=== PATIENT | female | born 2000 | race Two or more races ===

== ENCOUNTER 2025-11-14 10:12 | Emergency (ER) | payer MEDICAID, OTHER ==
[~2025-11-14] VITALS: Ht 167.6 cm; Wt 118.4 kg
[2025-11-14] MEDS ORDERED: AUG875T PO (12:39)
--- NOTE | 2025-11-14 12:39 | ED.PDOC ---
Eye-HPI HPI Comments The patient presents with a history of recurrent sore throat, reporting this is the third episode since October. The current episode started approximately three weeks before this visit, improved, then recurred about one and a half weeks before this visit. The patient reports persistent sore throat, muffled hearing, and swelling sensation in the ear, without air pressure changes. The patient noted some blood in sputum on the Friday night two days before this visit, described as not a lot. The patient reports prior symptoms of congestion, muscle aches, vomiting, and fever, which have since subsided. There is ongoing congestion and muffled hearing, with stagnant improvement. The patient previously visited urgent care one week before this visit, where antibiotics and ibuprofen were prescribed; the antibiotic course was completed, but ibuprofen was not used. Zyrtec (cetirizine) was also prescribed for congestion but has not provided noticeable benefit. The current primary concern is muffled hearing and persistent sore throat. The patient has a history of recurrent sore throats, typically about once a year, with the last severe episode in the distant past. No allergies or relevant family history were discussed. The patient is not currently taking Tylenol or ibuprofen for pain. No details on social history were provided. Denies chest pain shortness of breath Denies inability to move neck, history of meningitis Denies difficulty swallowing nor persistent salivation Denies fevers chills night sweats Denies persistent cough, runny nose, congestion Denies loss of appetite, unintentional weight loss over the past 3 months Denies voice changes Denies history of asthma or seasonal allergies Chief Complaint: Sore Throat Time Seen by MD: 12:00 Reviewed Notes: Nurses Notes, Medications, Allergies Allergies: Coded Allergies: NO KNOWN ALLERGIES (Unverified , 11/14/25) Home Meds Active Scripts Amoxicillin & Pot Clavulanate (AUGMENTIN TABLET) 875 Mg Tb, 875 MG PO BID for 7 Days, #14 TAB 0 Refills Prov:LAURA SANDOVAL NP 11/14/25 Information Source: Patient Mode of Arrival: Ambulatory Timing: Days Duration: Since onset, Days Prehospital treatment: None Quality: Pain Lids: Normal Conjunctiva: Normal Cornea: Normal Pupils: Normal EOM: Normal Fundus: Normal Slit lamp exam: Normal Anterior chamber: Normal Mouth: Normal ENT Ear Exam: Normal Nose: Normal Sinuses: Normal Oropharynx: Normal Onset: Spontaneous Throat Exposed to: None History of: None Associated signs and symptoms: Sore Throat, Ear Pain Past Medical History PAST MEDICAL HISTORY: Denies Surgical History: Denies all surgeries PURSE MAKER History: No Pertinent PURSE MAKER History Family History Family History: Reviewed,noncontributory to illness, Unknown Social History Smoker: Non-Smoker Alcohol: Denies ETOH Use Drugs: Denies Drug Use Lives In: Home Constitutional: denies: chills, diaphoresis, fatigue, fever, malaise, sweats, weakness, others EENTM: reports: ear pain (Cover), throat pain, throat swelling; denies: blurred vision, double vision, ear bleeding, ear discharge, ear drainage, ear ringing, eye pain, eye redness, hearing loss, mouth pain, mouth swelling, nasal discharge, nose bleeding, nose congestion, nose pain, photophobia, tearing, voic e changes, others Respiratory: denies: cough, hemoptysis, orthopnea, SOB at rest, shortness of breath, SOB with excertion, stridor, wheezing, others Cardiovascular: denies: chest pain, dizzy spells, diaphoresis, Dyspnea on exertion, edema, irregular heart beat, left arm pain, lightheadedness, palpitations, PND, syncope, others Gastrointestinal: denies: abdomen distended, abdominal pain, blood streaked bowels, constipated, diarrhea, dysphagia, difficulty swallowing, hematemesis, melena, nausea, poor appetite, poor fluid intake, rectal bleeding, rectal pain, vomiting, others Genitourinary: denies: abnormal vagina bleeding, burning, dyspareunia, dysuria, flank pain, frequency, hematuria, incontinence, pain, , vagina discharge, urgency, others Neurological: denies: dizziness, fainting, headache, left sided numbness, left sided weakness, numbness, paresthesia, pre-existing deficit, right sided numb ness, right sided weakness, seizure, speech problems, tingling, tremors, weakness, others Musculoskeletal: denies: back pain, gout, joint pain, joint swelling, muscle pain, muscle stiffness, neck pain, others Integumetry: denies: bruises, change in color, change in hair/nails, dryness, laceration, lesions, lumps, rash, wounds, others Allergic/Immunocompromised: denies: Difficulty Healing, Frequent Infections, Hives, Itching, others Hematologic/Lymphatic: denies: anemia, blood clots, easy bleeding, easy bruising, swollen glands, others Endocrine: denies: excessive hunger, excessive sweating, excessive thirst, excessive urination, flushing, intolerance to cold, intolerance to heat, unexplained weight gain, unexplained weight loss, others Psychiatric: denies: anxiety, bipolar disorder, depression, hopeless, panic disorder, schizophrenia, sleepless, suicidal, others All Other Systems: Reviewed and Negative Physical Exam Exam Comments Oropharynx is red. No visible fluid found behind the ear. General Appearance: No Apparent Distress, Normal HEENT: Normal ENT Inspection, Pharynx Normal, TMs Normal Neck: Full Range of Motion, Non-Tender, Normal, Normal Inspection Respiratory: Chest Non-Tender, Lungs Clear, No Accessory Muscle Use, No Respiratory Distress, Normal Breath Sounds Cardiovascular: No Edema, No JVD, No Murmur, No Gallop, Normal Peripheral Pu lses, Regular Rate/Rhythm Breast Exam: Deferred Gastrointestinal: No Organomegaly, Non Tender, No Pulsatile Mass, Normal Bowel Sounds, Soft Genitalia: Deferred Pelvic: Deferred Rectal: Deferred Extremities: No calf tenderness, Normal capillary refill, Normal inspection, Normal range of motion, Non-tender, No pedal edema Musculoskeletal : Apperance: Normal Neurologic: Alert, nuclear fuels reclamation engineer II-XII nml as Tested, No Motor Deficits, Normal Affect, Normal Mood, No Sensory Deficits Cerebellar Function: Normal Reflexes: Normal Skin: Dry, Normal Color, Warm Lymphatic: No Adenopathy Was a procedure done? Was a procedure done?: No EENT DIFF Eye: Other X-Ray, Labs, Meds, VS Vital Signs Date Time Temp Pulse Resp B/P (MAP) Pulse Ox O2 Delivery O2 Flow Rate FiO2 11/14/25 12:45 89 16 98 Room Air 11/14/25 12:45 98.4 89 16 143/64 (90) 99 98.4 11/14/25 10:14 98.6 115 15 151/80 99 98.6 X-Ray, Labs, Meds, VS Comment Patient arrives alert and oriented, ABC's intact, afebrile, vital signs stable, saturating well in room air The patient with a history of recurrent sore throats presents with a persistent sore throat, muffled hearing, and ear fullness following recent upper respiratory symptoms. Examination reveals oropharyngeal erythema and no visible middle ear effusion. Completed a prior course of antibiotics with minimal improvement, and Zyrtec provided no significant relief. Mild hemoptysis was reported two days before this visit. The patient has ongoing sore throat and ear symptoms following an incomplete response to a prior antibiotic course. Examination reveals erythematous oropharynx and no visible middle ear fluid. Persistent muffled hearing may indicate Eustachian tube dysfunction or early otitis media. Mild hemoptysis lik vlad related to pharyngeal irritation. - Prescribed Augmentin for broader antimicrobial coverage. - Advised taking medication with food or yogurt to minimize gastrointestinal upset. - Recommended trial of Tylenol or ibuprofen for pain control. - Instructed to return for re-evaluation if symptoms do not improve within 48 hours. Follow-up/Disposition: Patient advised to follow up if symptoms worsen or do not improve within 48 hours. Return precautions reviewed. Additional MDM Review of External, Non-ED records: External records reviewed. Discussion with independent historian (EMS, family) history obtained from the patient/parents (if applicable) at bedside Chronic conditions affecting care: None Social determinants of health affecting care: None Consideration of admission (observation or admission): I considered escalation of care to admission for this patient, however given the reassuring workup, the patient is safe for outpatient management. Discussion with the Radiology: No Tests considered but not performed: Prescription medication considered but not given: Time of 1ST Reevaluation: 12:30 Reevaluation 1ST: Unchanged Patient Education/Counseling: Diagnosis, Treatment, Prognosis Family Education/Counseling: No Family Present SEPSIS Sepsis Screen Date sepsis recognized/suspect: Nov 14, 2025 Time Sepsis recognized/suspect: 1016 Recent Procedure: No On Antibiotic Therapy: No Respiratory Rate >20: No Heart Rate >90: Yes Temp<36 C (96.8 F) or >38.3 C: No SBP <90 or MAP <65 mmHG: No New Acute Mental Status Change: No Is the patient on CPAP, BIPAP,: No Vital Signs Date Time Temp Pulse Resp B/P (MAP) Pulse Ox O2 Delivery O2 Flow Rate FiO2 11/14/25 12:45 89 16 98 Room Air 11/14/25 12:45 98.4 89 16 143/64 (90) 99 98.4 11/14/25 10:14 98.6 115 15 151/80 99 98.6 Departure 1 Departure Time of Disposition: 12:38 Impression: Primary Impression: Otitis media Qualified Codes: H66.009 - Acute suppurative otitis media without spontaneous rupture of ear drum, unspecified ear Disposition: HOME / SELF CARE / HOMELESS Condition: Stable Additional Instructions: Discharge Note: Continue on your medications. Do not drive when taking narcotics. Drink plenty of fluids. Follow up with your primary Dr. Take your prescriptions as ordered. If your condition becomes worse call and follow up with your primary Dr. for instructions or return to the ER if needed. Thank you for visiting [facility]. e-Prescriptions Amoxicillin & Pot Clavulanate (AUGMENTIN TABLET) 875 Mg Tb 875 MG PO BID for 7 Days, #14 TAB 0 Refills Prov: LAURA SANDOVAL NP 11/14/25 Discharged With: Self Critical Care Note Critical Care Time?: No Stability Stability form required: No Heart Score Heart Score: Heart Score Response (Comments) Value History N/A 0 EKG N/A 0 Age N/A 0 Risk Factors N/A 0 Troponin N/A 0 Total 0 I personally scribed for LAURA SANDOVAL NP ([email or web address]) on 11/14/25 at 13:14. Electronically submitted by Eduardo Bales ([email or web address]). LAURA SANDOVAL NP Nov 14, 2025 12:39
[2025-11-14 12:45] VITALS: BP 143/64; PULSE 89; RESP 16; TEMP 98.4; O2SAT 98
== END 2025-11-14 12:47 | disposition home or self-care (01) ==
LOC: ER 10:12
DX: H66.90 Otitis media, unspecified, unspecified ear (principal); J02.9 Acute pharyngitis, unspecified